=== PATIENT | female | born 1955 | race Caucasian/White ===

== ENCOUNTER → 2023-12-08 | Outpatient (CLI) | payer OTHER ==
[~2023-12-08] MED LIST: ALEVE 220MG220 MG PO; ASPIRIN 81M81 MG/TA2 PO; ASPIRIN E.C. 8181 MG PO; CALCIUM + D 6001 TA1 PO; CALCIUM 600/VIT1 CA1 PO; CENTRUM SILVER1 TAB PO; LIPITOR20 MG PO; MULTAQ400 MG PO; MULTIPLE VITAMI1 TAB PO; PRILOSEC 20MG20 MG PO; PRILOTC PO; TOPROL XL 50MG50 MG PO; TYLENOL 325MG325 MG PO; TYLENOL 500MG500 MG PO; XARELTO20 MG PO; ZESTRIL2.5 MG PO; ZOCOR 20MG20 MG PO
[2023-12-08 09:29] LABS: BASO # 0.1 K/mm3 (0.0-0.2); BASO % 1.2 % (0.0-2.0); EOS # 0.3 K/mm3 (0.0-0.7); EOS % 3.9 % (0.0-4.0); GRAN # 4.4 K/mm3 (1.4-6.5); GRAN % 64.5 % (42.2-75.2); HEMATOCRIT 46.3 % (37.0-47.0); HEMOGLOBIN 15.3 g/dl (12.5-16.0); LYMPH # 1.4 K/mm3 (1.2-3.4); LYMPH % 21.4 % (20.0-51.0); MEAN CELL VOLUME 92 fl (80.0-100.0); MEAN CORPUSCULAR HEMOGLOBIN 31 pg (27-31); MEAN CORPUSCULAR HGB CONC 33 g/dl (33.0-37.0); MEAN PLATELET VOLUME 12.2 fl (7.4-10.4); MONO # 0.6 K/mm3 (0.1-0.6); MONO % 8.6 % (1.7-9.3); PLATELET COUNT 187 K/mm3 (130-400); RED BLOOD COUNT 5.02 M/mm3 (4.10-5.30); REDCELL DISTRIBUTION WIDTH-CV 14.2 % (11.5-14.5)
[2023-12-08 09:47] LABS: POTASSIUM 4.4 mEq/L (3.5-4.5)
[2023-12-08 10:22] LABS: ALBUMIN 3.8 g/dL (3.4-4.8); BILIRUBIN,TOTAL 0.9 mg/dL (0.2-1.2); CALCIUM 9.1 mg/dL (8.4-10.2); CREATININE, serum 1.02 mg/dL (0.57-1.11); TOTAL PROTEIN 8.1 g/dl (6.2-8.1)
== END ==
LOC: COL.LAB 08:45
PROVIDERS: Family Medicine
DX: Z00.00 Encounter for general adult medical examination without abnormal findings (principal); Z13.29 Encounter for screening for other suspected endocrine disorder; Z13.220 Encounter for screening for lipoid disorders; E11.59 Type 2 diabetes mellitus with other circulatory complications

== ENCOUNTER → 2024-01-29 | Outpatient (CLI) | payer OTHER | LOC: COL.RAD 07:36 | DX: K76.0 Fatty (change of) liver, not elsewhere classified (principal) ==